=== PATIENT | female | born 1980 | race African-American/Black ===

== ENCOUNTER 2019-07-04 12:49 | Emergency (ER) | payer MEDICAID ==
[~2019-07-04] VITALS: Ht 172.7 cm; Wt 80.0 kg
[2019-07-04] MEDS ORDERED: KETOROLAC 30MG/ML VIAL IV STA (14:18)
[2019-07-04 14:32] LABS: CHLORIDE 107 mEq/L (98-107)
[2019-07-04 14:35] LABS: EOSINOPHILS % 2.3 % (0.0-5.0); HEMATOCRIT. 37.2 % (36.0-48.0); HEMOGLOBIN. 12.3 g/dL (12.0-16.0); LYMPHOCYTES % 22.4 % (20.0-50.0); MEAN CORPUSCULAR HEMOGLOBIN 28.5 pg (28.0-32.0); MEAN CORPUSCULAR VOLUME 86.4 fL (81.0-99.0); MEAN PLATELET VOLUME 8.3 fl (7.4-10.4); MONOCYTES % 8.3 % (2.0-8.0); PLATELET 426 x1000/uL (130-400); RED BLOOD CELL COUNT 4.31 mill/uL (4.2-5.4); RED CELL DISTRIBUTION WIDTH 14.4 % (11.6-14.6)
[2019-07-04] MEDS ORDERED: DIAZEPAM 5 MG TABLET PO ONE (15:15)
[2019-07-04 18:20] VITALS: BP 112/73
== END 2019-07-04 18:30 | disposition home or self-care (01) ==
LOC: ER 12:49
DX: R07.89 Other chest pain (principal); I50.9 Heart failure, unspecified; J45.909 Unspecified asthma, uncomplicated; F17.200 Nicotine dependence, unspecified, uncomplicated
CPT/HCPCS: 36415; 71045; 71275; 80053; 81025; 83880; 84484; 85025; 85379; 93005; 96374; 99285; J1885